=== PATIENT | female | born 1960 | race Hispanic/Latino ===

== ENCOUNTER 2022-02-16 09:19 | Outpatient (CLI) | payer OTHER | END 2022-02-16 09:20 | disposition home or self-care (01) | LOC: PF 09:19 | PROVIDERS: ATTEND Internal Medicine | DX: J44.9 Chronic obstructive pulmonary disease, unspecified (principal); I21.A9 Other myocardial infarction type; R01.1 Cardiac murmur, unspecified | CPT/HCPCS: 94060; 94729 ==